=== PATIENT | male | born 1985 | race Caucasian/White ===

== ENCOUNTER 2019-04-01 05:33 | Day surgery (SDC) | payer OTHER ==
[2019-04-01] MEDS ORDERED: CEFAZOLIN 2 GM/50 ML (PMX) 50 ML IVPB (06:00)
[2019-04-01] MEDS: SOD CHLORIDE 0.9% 1,000 ML IV (06:28)
[2019-04-01 07:30] LABS: ADD MAN DIFF? NO
[2019-04-01 07:37] LABS: BASOPHILS % 0.3 % (0.0-2.0); EOSINOPHILS # 0.2 10^3/ul (0.0-0.5); EOSINOPHILS % 2.6 % (0.0-7.0); HEMATOCRIT 44.6 % (42.0-52.0); HEMOGLOBIN 15.4 g/dl (14.0-18.0); LYMPHOCYTES # 2.6 10^3/ul (0.8-2.9); LYMPHOCYTES % 39.5 % (15.0-51.0); MEAN CORPUSCULAR HEMOGLOBIN 30.7 pg (29.0-33.0); MEAN CORPUSCULAR HGB CONC 34.5 g/dl (32.0-37.0); MEAN PLATELET VOLUME 10.4 fl (7.4-10.4); MONOCYTE # 0.4 10^3/ul (0.3-0.9); MONOCYTES % 6.6 % (0.0-11.0); NEUTROPHIL # 3.4 10^3/ul (1.6-7.5); NEUTROPHILS % 50.7 % (39.0-77.0); PLATELET COUNT 249 10^3/UL (140-415); RED BLOOD COUNT 5.01 10^6/ul (4.70-6.10); RED CELL DISTRIBUTION WIDTH 11.7 % (11.5-14.5)
[2019-04-01 07:37] LABS: WHITE BLOOD COUNT 6.6 10^3/ul (4.8-10.8)
[2019-04-01 07:38] LABS: INR 0.87; PROTIME 11.9 Sec (11.9-14.9); PT RATIO 0.9
[2019-04-01 07:39] LABS: PARTIAL THROMBOPLASTIN TIME 27.8 Sec (23.0-35.0)
[2019-04-01 07:41] LABS: ALANINE AMINOTRANSFERASE 24 IU/L (13-69); ALBUMIN 4.3 g/dl (3.3-4.9); ALBUMIN/GLOBULIN RATIO 1.43; ALKALINE PHOSPHATASE 50 IU/L (42-121); ANION GAP 7 (5-13); ASPARTATE AMINO TRANSFERASE 24 IU/L (15-46); BILIRUBIN,INDIRECT 0.6 mg/dl (0-1.1); BILIRUBIN,TOTAL 0.6 mg/dl (0.2-1.3); CALCIUM 9.5 mg/dl (8.4-10.2); CARBON DIOXIDE 26 mmol/L (21-31); CHLORIDE 107 mmol/L (97-110); CREATININE 1.03 mg/dl (0.61-1.24); Estimated GFR > 60 mL/min (>60); GLUCOSE 84 mg/dl (70-220); TOTAL PROTEIN 7.3 g/dl (6.1-8.1)
[2019-04-01 07:44] LABS: BLOOD UREA NITROGEN 22 mg/dl (7-20)
[2019-04-01 07:49] LABS: SODIUM 140 mmol/L (135-144)
[2019-04-01] MEDS ORDERED: ROCURONIUM 50 MG INJ (08:08)
[2019-04-01] MEDS ORDERED: GLYCOPYRROLATE 0.4 MG INJ ×2 (08:08→08:56)
[2019-04-01] MEDS ORDERED: LIDOCAINE 2% (SDV) 5 ML INJ (08:08)
[2019-04-01] MEDS ORDERED: PROPOFOL 20 ML (08:08)
[2019-04-01] MEDS ORDERED: MEPERIDINE 100 MG INJ (08:08)
[2019-04-01] MEDS ORDERED: NEOSTIGMINE 3 MG/3 ML SYRINGE ×2 (08:08→08:56)
[2019-04-01] MEDS ORDERED: SUCCINYLCHOLINE CHLORIDE 100 MG/5 ML SYG IV (08:08)
[2019-04-01] MEDS ORDERED: LIDOCAINE 1%/EPI (1:100,000) (MDV) 20 ML (08:18)
[2019-04-01] MEDS ORDERED: BUPIVACAINE 0.25%/EPI (SDV) 30 ML INJ (08:18)
[2019-04-01] MEDS: LIDOCAINE 1% (MDV) 20 ML INJ INJ (08:30)
[2019-04-01] MEDS: BUPIVACAINE 0.25% (STERILE-PAK) 30 ML INJ INJ (08:30)
[2019-04-01] MEDS ORDERED: DIPHENHYDRAMINE 50 MG INJ IV (10:00)
[2019-04-01] MEDS ORDERED: EPHEDrine 25 MG/5 ML SYG IV (10:00)
[2019-04-01] MEDS ORDERED: ONDANSETRON 4 MG INJ IV (10:00)
[2019-04-01] MEDS ORDERED: hydrALAzine 20 MG INJ IV (10:00)
[2019-04-01] MEDS ORDERED: MIDAZOLAM 1 MG/ML 2 ML INJ IV (10:00)
[2019-04-01] MEDS ORDERED: HYDROmorphONE 1 MG/5 ML IV SYRINGE IV ×3 (10:00)
[2019-04-01] MEDS ORDERED: METOCLOPRAMIDE 10 MG INJ IV (10:00)
[2019-04-01] MEDS ORDERED: OXYCODONE/ACETAMINOPHEN (5/325) TAB PO ×2 (10:00)
[2019-04-01] MEDS ORDERED: LABETALOL HCL 20MG INJ IV (10:00)
[2019-04-01] MEDS ORDERED: MEPERIDINE 25 MG INJ IV (10:00)
[2019-04-01] MEDS ORDERED: FENTAnyl 50 MCG/ML VIAL IV ×3 (10:00)
== END 2019-04-01 10:55 | disposition home or self-care (01) ==
LOC: SDS 05:33
DX: L05.91 Pilonidal cyst without abscess (principal)
CPT/HCPCS: 14000; 80053; 85025; 85610; 85730; 88307